=== PATIENT | male | born 1990 | race Two or more races ===

== ENCOUNTER 2017-09-20 07:02 | Outpatient (CLI) | payer OTHER | END 2017-09-20 07:07 | disposition home or self-care (01) | LOC: SONOGRAMA 07:02 → MAMO-SONO 08:15 | DX: K29.00 Acute gastritis without bleeding (principal); K21.9 Gastro-esophageal reflux disease without esophagitis ==

== ENCOUNTER → 2017-12-13 07:03 | Outpatient (CLI) | payer OTHER | END | disposition home or self-care (01) | LOC: LAB 07:03 | DX: K80.20 Calculus of gallbladder without cholecystitis without obstruction (principal); Z01.812 Encounter for preprocedural laboratory examination ==

== ENCOUNTER 2017-12-13 07:50 | Outpatient (CLI) | payer OTHER | END 2017-12-13 08:02 | disposition home or self-care (01) | LOC: RAD 07:50 | DX: K80.20 Calculus of gallbladder without cholecystitis without obstruction (principal); Z01.810 Encounter for preprocedural cardiovascular examination ==

== ENCOUNTER 2018-02-23 07:13 | Outpatient (CLI) | payer OTHER | END 2018-02-23 16:12 | disposition home or self-care (01) | LOC: MRI 07:13 | DX: R17 Unspecified jaundice (principal) | CPT/HCPCS: 74181 ==